=== PATIENT | female | born 1990 | race Caucasian/White ===

== ENCOUNTER 2021-05-07 13:21 | Inpatient (IN) | payer MEDICAID ==
[~2021-05-07] VITALS: Ht 162.6 cm; Wt 88.5 kg
[2021-05-07] MEDS ORDERED: SODIUM CHLORIDE 0.9% PF 10ML ONE (15:14)
[2021-05-07 15:17] LABS: HCG UR SG 1.017 (1.003-1.030)
[2021-05-07] MEDS ORDERED: CYCLOBENZAPRINE PO (15:18)
[2021-05-07] MEDS ORDERED: HYDR-3237 PO (15:18)
[2021-05-07] MEDS ORDERED: METHYLPREDNISOLONE PO (15:18)
[2021-05-07 15:19] VITALS: BP 100/66
[2021-05-07] MEDS ORDERED: CHLORHEXIDINE 15 ML UDC PO ONE (15:30)
[2021-05-07] MEDS ORDERED: PROMETHAZINE 25 MG/ML, 1ML IVPush PRN ×2 (15:30→18:30)
[2021-05-07] MEDS ORDERED: ACETAMINOPHEN 325 MG TABLET PO PRN ×2 (15:30→18:30)
[2021-05-07] MEDS ORDERED: ONDANSETRON 2MG/ML, 2ML IVPush PRN ×3 (15:30→18:30)
[2021-05-07] MEDS ORDERED: hydrALAzine 20 MG/ML, 1ML IV PRN ×2 (15:30→18:30)
[2021-05-07] MEDS ORDERED: EPHEDRINE 50 MG/ML, 1ML IVPush PRN ×2 (15:30→18:30)
[2021-05-07] MEDS ORDERED: LABETALOL 5MG/ML, 20ML IV PRN ×2 (15:30→18:30)
[2021-05-07] MEDS ORDERED: OXYcodone 5 MG/5 ML ORAL.SOL UDC PO PRN ×2 (15:30→18:30)
[2021-05-07] MEDS ORDERED: CHLORHEXIDINE 15 ML UDC ONE (15:32)
[2021-05-07] MEDS ORDERED: BUPIVACAINE/PF 0.5% ONE (15:45)
[2021-05-07] MEDS ORDERED: VANCOMYCIN 1,000 MG ONE ×2 (15:45→15:48)
[2021-05-07] MEDS ORDERED: EPINEPHRINE 1 MG/ML, 1ML ONE (15:45)
[2021-05-07] MEDS ORDERED: GENTAMICIN 80 MG/2 ML ONE (15:48)
[2021-05-07 15:54] LABS: BASOPHILS % (AUTO) 1 % (0-1); EOSINOPHILS % (AUTO) 1 % (1-7); LYMPHOCYTES % (AUTO) 33 % (22-44); MEAN CORPUSCULAR HEMOGLOBIN 31.9 pg (27.0-34.8); MEAN CORPUSCULAR HGB CONC 34.6 g/dL (32.4-35.8); MEAN PLATELET VOLUME 7.7 fL (7.4-10.4); MONOCYTES % (AUTO) 9 % (2-9); NEUTROPHILS % (AUTO) 57 % (42-75); PLATELET COUNT 299 x10^3/uL (130-400); RED BLOOD COUNT 4.59 x10^6/uL (3.82-5.3); RED CELL DISTRIBUTION WIDTH 12.9 % (9.6-15.2)
[2021-05-07] MEDS ORDERED: LACTATED RINGERS 1,000 ML IV SCH (16:00)
[2021-05-07 16:05] LABS: ANION GAP 6 mmol/L (5-15); CALCIUM 8.2 mg/dL (8.5-10.1); CHLORIDE 109 mmol/L (98-107); CREATININE 0.51 mg/dL (0.55-1.02)
[2021-05-07 16:07] LABS: INTERNATIONAL NORMALIZED RATIO 1.01 (0.93-1.1); PROTHROMBIN TIME 10.8 Seconds (9.6-11.5)
[2021-05-07] MEDS ORDERED: FENTANYL PF 250 MCG/5ML ONE ×2 (16:22→17:50)
[2021-05-07] MEDS ORDERED: MIDAZOLAM 1 MG/ML, 2ML ONE (16:23)
[2021-05-07] MEDS ORDERED: PROPOFOL 50 ML ONE (16:39)
[2021-05-07] MEDS ORDERED: CEFAZOLIN 1,000 MG ONE ×2 (16:51→17:00)
[2021-05-07] MEDS ORDERED: SUCCINYLCHOLINE 20 MG/ML, 10ML ONE (17:00)
[2021-05-07] MEDS ORDERED: ROCURONIUM 10MG/ML,5ML ONE (17:00)
[2021-05-07] MEDS ORDERED: ONDANSETRON 2MG/ML, 2ML ONE (17:00)
[2021-05-07] MEDS ORDERED: NEOSTIGMINE 1 MG/ML, 10ML ONE (17:00)
[2021-05-07] MEDS ORDERED: GLYCOPYRROLATE 0.2MG/1ML, 5ML ONE (17:00)
[2021-05-07] MEDS ORDERED: PROPOFOL 10 MG/ML, 20ML ONE (17:00)
[2021-05-07] MEDS ORDERED: DEXAMETHASONE 4 MG/ML, 1ML ONE (17:00)
[2021-05-07] MEDS ORDERED: LABETALOL 5MG/ML, 20ML IVPush PRN (18:00)
[2021-05-07] MEDS ORDERED: PHARMACY MAY ADJ FOR RENAL FX MC PRN (18:00)
[2021-05-07] MEDS ORDERED: PROMETHAZINE 25 MG/ML, 1ML IM PRN (18:00)
[2021-05-07] MEDS ORDERED: MAGNESIUM HYDROXIDE 8%, 30ML UDC PO PRN (18:00)
[2021-05-07] MEDS ORDERED: OXYcodone 5 MG/5 ML ORAL.SOL UDC ONE (18:12)
[2021-05-07] MEDS ORDERED: FENTANYL PF 100 MCG/2ML ONE (18:12)
[2021-05-07] MEDS: FENTANYL PF 100 MCG/2ML IV PRN ×2 (18:19→18:25)
[2021-05-07] MEDS ORDERED: ACETAMINOPHEN 650 MG/20.3 ML UDC ONE (18:20)
[2021-05-07] MEDS ORDERED: FENTANYL PF 100 MCG/2ML IV PRN (18:30)
[2021-05-07] MEDS ORDERED: MEPERIDINE/PF 25MG/0.5ML IVPush PRN (18:30)
[2021-05-07] MEDS ORDERED: LORazepam 2 MG/ML, 1ML IVPush PRN (18:30)
[2021-05-07] MEDS ORDERED: METHOCARBAMOL 1,000 MG in DEXTROSE 5% 100 ML IV PRN (18:30)
[2021-05-07] MEDS ORDERED: HYDROmorphone 1 MG/ML, 1ML INJ IVPush PRN (18:30)
[2021-05-07] MEDS ORDERED: KETOROLAC 30 MG/1 ML IVPush PRN (18:30)
[2021-05-07] MEDS ORDERED: HALOPERIDOL 5 MG/ML IV PRN (18:30)
[2021-05-07] MEDS ORDERED: HYDROmorphone 1 MG/ML, 1ML INJ ONE (18:36)
[2021-05-07] MEDS: HYDROmorphone 1 MG/ML, 1ML INJ IVPush PRN ×2 (18:40→19:00)
[2021-05-07] MEDS ORDERED: DIAZEPAM 5 MG/ML, 2ML ONE (19:17)
[2021-05-07] MEDS ORDERED: DIAZEPAM 5 MG/ML, 10ML VIAL IV ONE (19:30)
[2021-05-07 20:27] VITALS: BP 119/82
[2021-05-07] MEDS: NS + 20MEQ KCL 1,000 ML IV SCH (20:48)
[2021-05-07] MEDS: SODIUM CHLORIDE FLUSH 10ML SYR IVF SCH (20:49)
[2021-05-07] MEDS: morphine SULFATE 10 MG/ML, 1ML IVPush PRN (21:03)
[2021-05-07] MEDS: OXYcodone/APAP 5/325MG TABLET PO PRN (22:31)
[2021-05-08 00:12] VITALS: BP 106/68
[2021-05-08] MEDS: morphine SULFATE 10 MG/ML, 1ML IVPush PRN ×7 (00:51→22:39)
[2021-05-08] MEDS: CEFAZOLIN PMX 1GM/50ML 50 ML IVPB SCH ×2 (01:02→09:44)
[2021-05-08] MEDS: OXYcodone/APAP 5/325MG TABLET PO PRN ×4 (02:33→21:37)
[2021-05-08] MEDS: DIAZEPAM 5 MG TABLET PO PRN ×2 (03:39→12:06)
[2021-05-08 07:48] VITALS: BP 116/79
[2021-05-08] MEDS: SENNA/DOCUSATE TABLET PO SCH (08:10)
[2021-05-08] MEDS: SODIUM CHLORIDE FLUSH 10ML SYR IVF SCH ×2 (09:00→21:38)
[2021-05-08] MEDS: NS + 20MEQ KCL 1,000 ML IV SCH ×2 (09:50→22:38)
[2021-05-08] MEDS ORDERED: TIZA-106 PO (10:07)
[2021-05-08] MEDS ORDERED: OXYC1TAB14 PO (10:07)
[2021-05-08 12:40] VITALS: BP 106/72
[2021-05-08] MEDS: GABAPENTIN 300 MG CAPSULE PO SCH ×2 (17:06→21:37)
[2021-05-08] MEDS ORDERED: GADOTERATE 10 MMOL/20ML SYR ONE (19:05)
[2021-05-08] MEDS: DIAZEPAM 5 MG/ML, 2ML IV SCH (19:40)
[2021-05-08 19:53] VITALS: BP 111/76
[2021-05-08] MEDS: DIPHENHYDRAMINE 50 MG/ML, 1ML IVPush PRN (22:42)
[2021-05-09 01:53] VITALS: BP 100/72
[2021-05-09] MEDS: OXYcodone/APAP 5/325MG TABLET PO PRN ×5 (01:55→23:55)
[2021-05-09] MEDS: DIAZEPAM 5 MG/ML, 2ML IV SCH ×3 (04:17→20:08)
[2021-05-09] MEDS: DIPHENHYDRAMINE 50 MG/ML, 1ML IVPush PRN (04:23)
[2021-05-09] MEDS: morphine SULFATE 10 MG/ML, 1ML IVPush PRN ×5 (04:51→23:27)
[2021-05-09 07:32] VITALS: BP 115/77
[2021-05-09] MEDS: SENNA/DOCUSATE TABLET PO SCH (08:13)
[2021-05-09] MEDS: GABAPENTIN 300 MG CAPSULE PO SCH ×3 (08:14→19:59)
[2021-05-09] MEDS: SODIUM CHLORIDE FLUSH 10ML SYR IVF SCH ×2 (10:33→20:08)
[2021-05-09] MEDS: NS + 20MEQ KCL 1,000 ML IV SCH (12:30)
[2021-05-09 14:02] VITALS: BP 100/75
[2021-05-09] MEDS ORDERED: BUPIVACAINE/PF 0.5% ONE (14:22)
[2021-05-09] MEDS ORDERED: EPINEPHRINE 1 MG/ML, 1ML ONE (14:22)
[2021-05-09] MEDS ORDERED: MIDAZOLAM 1 MG/ML, 2ML ONE (15:31)
[2021-05-09] MEDS ORDERED: FENTANYL PF 250 MCG/5ML ONE ×4 (15:31→16:28)
[2021-05-09] MEDS ORDERED: KETOROLAC 30 MG/1 ML ONE (15:34)
[2021-05-09] MEDS ORDERED: FENTANYL PF 100 MCG/2ML ONE ×2 (16:54→17:47)
[2021-05-09] MEDS: FENTANYL PF 100 MCG/2ML IV PRN ×3 (16:56→17:49)
[2021-05-09] MEDS ORDERED: MEPERIDINE/PF 25MG/0.5ML IVPush PRN (17:00)
[2021-05-09] MEDS ORDERED: HYDROmorphone 1 MG/ML, 1ML INJ IVPush PRN (17:00)
[2021-05-09] MEDS ORDERED: EPHEDRINE 50 MG/ML, 1ML IVPush PRN (17:00)
[2021-05-09] MEDS ORDERED: ACETAMINOPHEN 325 MG TABLET PO PRN (17:00)
[2021-05-09] MEDS ORDERED: OXYcodone 5 MG/5 ML ORAL.SOL UDC PO PRN (17:00)
[2021-05-09] MEDS ORDERED: ONDANSETRON 2MG/ML, 2ML IVPush PRN (17:00)
[2021-05-09] MEDS ORDERED: hydrALAzine 20 MG/ML, 1ML IV PRN (17:00)
[2021-05-09] MEDS ORDERED: LORazepam 2 MG/ML, 1ML IVPush PRN (17:00)
[2021-05-09] MEDS ORDERED: EPHEDRINE 50 MG/ML, 1ML IM PRN (17:00)
[2021-05-09] MEDS ORDERED: LABETALOL 5MG/ML, 20ML IV PRN (17:00)
[2021-05-09] MEDS ORDERED: PROMETHAZINE 25 MG/ML, 1ML IVPush PRN (17:00)
[2021-05-09] MEDS ORDERED: METHOCARBAMOL 1,000 MG in DEXTROSE 5% 100 ML IV PRN (17:00)
[2021-05-09] MEDS ORDERED: OXYcodone 5 MG/5 ML ORAL.SOL UDC ONE (17:47)
[2021-05-09] MEDS ORDERED: ACETAMINOPHEN 650 MG/20.3 ML UDC ONE (17:51)
[2021-05-09 18:43] VITALS: BP 107/78
[2021-05-09] MEDS ORDERED: MORPHINE SULFATE 4 MG/ML, 1ML ONE (23:24)
[2021-05-10 00:01] VITALS: BP 116/82
[2021-05-10] MEDS: NS + 20MEQ KCL 1,000 ML IV SCH ×2 (00:44→15:10)
[2021-05-10] MEDS ORDERED: MORPHINE SULFATE 4 MG/ML, 1ML ONE ×2 (02:21→05:26)
[2021-05-10] MEDS: morphine SULFATE 10 MG/ML, 1ML IVPush PRN ×3 (02:30→08:23)
[2021-05-10] MEDS: DIPHENHYDRAMINE 50 MG/ML, 1ML IVPush PRN ×2 (02:30→07:55)
[2021-05-10] MEDS: DIAZEPAM 5 MG/ML, 2ML IV SCH (03:20)
[2021-05-10 03:23] VITALS: BP 112/78
[2021-05-10] MEDS: OXYcodone/APAP 5/325MG TABLET PO PRN ×2 (03:50→07:53)
[2021-05-10] MEDS ORDERED: HYDROmorphone 1 MG/ML, 1ML INJ IV ONE (06:30)
[2021-05-10] MEDS ORDERED: HYDROmorphone 1 MG/ML, 1ML INJ ONE (06:33)
[2021-05-10 07:51] VITALS: BP 128/73
[2021-05-10] MEDS: GABAPENTIN 300 MG CAPSULE PO SCH ×4 (08:23→20:20)
[2021-05-10] MEDS: SENNA/DOCUSATE TABLET PO SCH (08:23)
[2021-05-10] MEDS: SODIUM CHLORIDE FLUSH 10ML SYR IVF SCH ×2 (08:23→21:53)
[2021-05-10] MEDS ORDERED: ACETAMINOPHEN 325 MG TABLET PO PRN (08:30)
[2021-05-10] MEDS: HYDROmorphone 2MG TABLET PO PRN ×3 (12:39→20:20)
[2021-05-10 13:30] VITALS: BP 108/71
[2021-05-10] MEDS: DIAZEPAM 5 MG/ML, 2ML IV PRN (14:37)
[2021-05-10 14:53] LABS: MICROSCOPIC NOT IND
[2021-05-10] MEDS: DEXAMETHASONE 1 MG TABLET PO SCH (16:16)
[2021-05-10 18:50] VITALS: BP 101/58
[2021-05-10] MEDS: LIDODERM 5% PATCH TD SCH (20:19)
[2021-05-10] MEDS: FAMOTIDINE 40 MG TABLET PO SCH (20:20)
[2021-05-10] MEDS: METHOCARBAMOL 750 MG TABLET PO PRN (20:20)
[2021-05-11] MEDS: HYDROmorphone 2MG TABLET PO PRN ×6 (00:18→22:00)
[2021-05-11] MEDS: DIAZEPAM 5 MG/ML, 2ML IV PRN ×2 (00:30→08:45)
[2021-05-11 01:33] VITALS: BP 93/69
[2021-05-11] MEDS: NS + 20MEQ KCL 1,000 ML IV SCH ×2 (04:30→17:50)
[2021-05-11] MEDS: METHOCARBAMOL 750 MG TABLET PO PRN ×2 (04:40→21:59)
[2021-05-11 07:29] VITALS: BP 100/67
[2021-05-11] MEDS: DEXAMETHASONE 1 MG TABLET PO SCH ×2 (08:02→17:20)
[2021-05-11] MEDS: BISACODYL 10 MG SUPP PR PRN ×2 (08:45→09:44)
[2021-05-11] MEDS: SODIUM CHLORIDE FLUSH 10ML SYR IVF SCH ×2 (08:46→21:00)
[2021-05-11] MEDS ORDERED: FLUCONAZOLE 50 MG TABLET PO ONE (09:00)
[2021-05-11] MEDS ORDERED: FLUCONAZOLE 100 MG TABLET ONE (09:38)
[2021-05-11] MEDS: SENNA/DOCUSATE TABLET PO SCH (09:43)
[2021-05-11] MEDS: GABAPENTIN 300 MG CAPSULE PO SCH ×3 (09:43→21:08)
[2021-05-11 14:05] VITALS: BP 110/75
[2021-05-11] MEDS: DIAZEPAM 5 MG TABLET PO PRN (16:50)
[2021-05-11] MEDS ORDERED: ONDANSETRON 4 MG TABLET PO PRN (18:00)
[2021-05-11 19:04] VITALS: BP 100/64
[2021-05-11] MEDS: FAMOTIDINE 40 MG TABLET PO SCH (21:08)
[2021-05-11] MEDS: LIDODERM 5% PATCH TD SCH (21:08)
[2021-05-12] MEDS: DIAZEPAM 5 MG TABLET PO PRN ×3 (01:57→15:50)
[2021-05-12] MEDS: HYDROmorphone 2MG TABLET PO PRN ×4 (01:57→18:31)
[2021-05-12 02:05] VITALS: BP 97/65
[2021-05-12] MEDS: NS + 20MEQ KCL 1,000 ML IV SCH ×2 (04:24→20:30)
[2021-05-12] MEDS: METHOCARBAMOL 750 MG TABLET PO PRN ×3 (05:57→18:33)
[2021-05-12 06:50] VITALS: BP 90/57
[2021-05-12] MEDS: DEXAMETHASONE 1 MG TABLET PO SCH ×2 (07:39→15:49)
[2021-05-12] MEDS: SENNA/DOCUSATE TABLET PO SCH (07:39)
[2021-05-12] MEDS: GABAPENTIN 300 MG CAPSULE PO SCH ×3 (07:39→21:22)
[2021-05-12] MEDS: SODIUM CHLORIDE FLUSH 10ML SYR IVF SCH ×2 (07:40→21:22)
[2021-05-12 12:13] VITALS: BP 113/77
[2021-05-12 18:25] VITALS: BP 121/68
[2021-05-12] MEDS: LIDODERM 5% PATCH TD SCH (20:00)
[2021-05-12] MEDS: FAMOTIDINE 40 MG TABLET PO SCH (21:22)
[2021-05-13 00:58] VITALS: BP 95/60
[2021-05-13] MEDS: HYDROmorphone 2MG TABLET PO PRN ×5 (01:11→19:53)
[2021-05-13] MEDS: METHOCARBAMOL 750 MG TABLET PO PRN ×3 (01:11→14:37)
[2021-05-13] MEDS: morphine SULFATE 10 MG/ML, 1ML IVPush PRN (03:13)
[2021-05-13 07:48] VITALS: BP 103/68
[2021-05-13] MEDS: SENNA/DOCUSATE TABLET PO SCH (07:52)
[2021-05-13] MEDS: GABAPENTIN 300 MG CAPSULE PO SCH ×3 (07:53→21:43)
[2021-05-13] MEDS: DEXAMETHASONE 1 MG TABLET PO SCH ×2 (07:55→17:21)
[2021-05-13] MEDS: SODIUM CHLORIDE FLUSH 10ML SYR IVF SCH ×2 (09:00→21:47)
[2021-05-13] MEDS: NS + 20MEQ KCL 1,000 ML IV SCH ×2 (09:06→23:10)
[2021-05-13] MEDS: DIAZEPAM 5 MG TABLET PO PRN ×2 (11:06→21:46)
[2021-05-13 13:36] VITALS: BP 96/60
[2021-05-13 19:16] VITALS: BP 128/87
[2021-05-13] MEDS: LIDODERM 5% PATCH TD SCH (20:00)
[2021-05-13] MEDS: FAMOTIDINE 40 MG TABLET PO SCH (21:44)
[2021-05-14] MEDS: HYDROmorphone 2MG TABLET PO PRN ×4 (00:01→15:34)
[2021-05-14 01:16] VITALS: BP 105/66
[2021-05-14] MEDS: METHOCARBAMOL 750 MG TABLET PO PRN ×3 (02:05→15:34)
[2021-05-14] MEDS: DIAZEPAM 5 MG TABLET PO PRN ×3 (04:26→17:07)
[2021-05-14] MEDS ORDERED: SIMETHICONE 80 MG CHEW TAB PO PRN (07:30)
[2021-05-14 07:37] VITALS: BP 95/60
[2021-05-14] MEDS ORDERED: DIAZ5TAB4 PO ×2 (07:41→14:59)
[2021-05-14] MEDS ORDERED: HYDR2TAB40 PO ×2 (07:41→14:59)
[2021-05-14] MEDS ORDERED: DEXA1TAB5 PO (07:41)
[2021-05-14] MEDS ORDERED: GABA300C PO ×2 (07:41→14:59)
[2021-05-14] MEDS: FAMOTIDINE 40 MG TABLET PO SCH (08:21)
[2021-05-14] MEDS: DEXAMETHASONE 1 MG TABLET PO SCH ×2 (08:21→17:07)
[2021-05-14] MEDS: GABAPENTIN 300 MG CAPSULE PO SCH ×2 (08:21→15:34)
[2021-05-14] MEDS: SENNA/DOCUSATE TABLET PO SCH (08:22)
[2021-05-14] MEDS: BISACODYL 10 MG SUPP PR PRN (08:22)
[2021-05-14] MEDS: SODIUM CHLORIDE FLUSH 10ML SYR IVF SCH (08:27)
[2021-05-14 12:17] VITALS: BP 101/65
[2021-05-14] MEDS: NS + 20MEQ KCL 1,000 ML IV SCH (12:30)
== END 2021-05-14 18:30 | DRG 520 ==
LOC: OBSVTOIN 14:27 → ORIP 14:27 → INTOOBSV 14:27 → 4NE 20:05
PROVIDERS: ADMIT Neurological Surgery; ATTEND Neurological Surgery
PROC: 0SB40ZZ Excision of Lumbosacral Disc, Open Approach (ICD-10-PCS; principal; 2021-05-07 16:00)
PROC: 01NB0ZZ Release Lumbar Nerve, Open Approach (ICD-10-PCS; 2021-05-09)
PROC: 01NR0ZZ Release Sacral Nerve, Open Approach (ICD-10-PCS; 2021-05-09)
PROC: [UNRECOGNIZED PROCEDURE] (2021-05-09)
PROC: 0SB40ZZ Excision of Lumbosacral Disc, Open Approach (ICD-10-PCS; 2021-05-09)
PROC: 0T9B70Z Drainage of Bladder with Drainage Device, Via Natural or Artificial Opening (ICD-10-PCS; 2021-05-10)
DX: M51.27 Other intervertebral disc displacement, lumbosacral region (principal); M51.16 Intervertebral disc disorders with radiculopathy, lumbar region; M25.78 Osteophyte, vertebrae; Z20.822 Contact with and (suspected) exposure to COVID-19; F12.90 Cannabis use, unspecified, uncomplicated; M62.838 Other muscle spasm; Z79.899 Other long term (current) drug therapy; Z72.89 Other problems related to lifestyle
CPT/HCPCS: 36415; 72100; S0020; 71045; 72158; 80048; 81003; 81025; 85025; 85610; 85730; 87635; 88304; 93005; G0378; J0171; J0690; J1100; J1170; J1885; J2250; J2405; J2550; J2704; J2710; J3010; J3360; J3370; J3480; Q0162; A9575; J0330; J1200; J1580; J2270; J2800; J7120